=== PATIENT | female | born 1970 | race Caucasian/White ===

== ENCOUNTER 2016-11-15 19:42 | Emergency (ER) | payer OTHER ==
[~2016-11-15] VITALS: Ht 154.9 cm; Wt 98.9 kg
[~2016-11-15 19:42] MED LIST: ASPI-991; BENA1TAB18; CALC500T52; CARV25TA2; METF500T
--- NOTE | 2016-11-15 19:56 | NUR ---
pt ambulatory w/ steady gait for c/o low bp at home. per pt report, initially sbp was 110, but kept going down to 94 after 3 consecutive bp readings today, only medical complaint is feeling dizzy when bending down to pick something up, no other medical complaints. AOx4, afebrile w/ resp even & unlabored, denies any pain, no sob, no dizziness at this time, VSS w/ nad noted. pt in gown, on continuous monitoring.
[2016-11-15] MEDS ORDERED: IV SET PRIMARY 1 EA INFUS.SET MC ONE ×3 (20:13→21:13)
[2016-11-15] MEDS ORDERED: IV NS 0.9% 1,000 ML ONE ×3 (20:13→21:13)
--- NOTE | 2016-11-15 20:15 | NUR ---
IVHL started, labs drawn & sent. medicated as ordered w/ IV flds.
[2016-11-15] MEDS ORDERED: IV NS 0.9% 1,000 ML BAG IV ONE (20:30)
[2016-11-15 20:40] LABS: CALCIUM, SERUM 9.4 mg/dL (8.5-10.1); CREATININE 0.8 mg/dL (0.6-1.3); POTASSIUM 3.8 mmol/L (3.5-5.1)
[2016-11-15 20:50] LABS: BASOPHILS # (AUTO) 0.1 /CMM (0.0-0.2); BASOPHILS % (AUTO) 0.7 % (0.0-2.0); EOSINOPHILS # (AUTO) 0.2 /CMM (0.0-0.7); EOSINOPHILS % (AUTO) 2.6 % (0.0-6.0); HEMATOCRIT 40 % (33-45); HEMOGLOBIN 13.2 g/dL (11.5-14.8); LYMPHOCYTES # (AUTO) 4.3 /CMM (0.8-4.8); LYMPHOCYTES % (AUTO) 50.3 % (20.0-44.0); MEAN CORPUSCULAR HEMOGLOBIN 28 PG (26.0-33.0); MEAN CORPUSCULAR HGB CONC 33 g/dl (31.0-36.0); MEAN CORPUSCULAR VOLUME 85 fL (82-100); MONOCYTES # (AUTO) 0.5 /CMM (0.1-1.30); MONOCYTES % (AUTO) 5.7 % (2.0-12.0); NEUTROPHILS # (AUTO) 3.5 /CMM (1.8-8.9); NEUTROPHILS % (AUTO) 40.7 % (43.0-81.0); PLATELET COUNT (AUTO) 222 /CMM (150-450); RDW COEFFICIENT OF VARIATION 20.7 (11.5-15.0); RED BLOOD CELL COUNT(AUTO) 4.69 MIL/uL (4.0-5.2); WHITE BLOOD COUNT (AUTO) 8.6 K/uL (4.3-11.0)
--- NOTE | 2016-11-15 21:15 | NUR ---
IV removed. Catheter intact and site benign. Pressure and 4x4 applied to site. No bleeding noted.Patient discharged to home in stable condition. Written and verbal after care instructions given. Patient verbalizes understanding of instruction.
[2016-11-15 21:16] VITALS: BP 137/87
== END 2016-11-15 21:16 | disposition home or self-care (01) ==
LOC: ER 19:45
DX: E11.65 Type 2 diabetes mellitus with hyperglycemia (principal); E86.0 Dehydration; K21.9 Gastro-esophageal reflux disease without esophagitis; F41.9 Anxiety disorder, unspecified; F17.200 Nicotine dependence, unspecified, uncomplicated
CPT/HCPCS: 36415; 80048; 82962; 85025; 96360; 99284; A4606; J7030 ×3; Z7610

== ENCOUNTER 2019-04-04 19:50 | Emergency (ER) | payer OTHER ==
[~2019-04-04] VITALS: Ht 154.9 cm; Wt 100.2 kg
[~2019-04-04 19:50] MED LIST changes: +ASPI-1152; -ASPI-991
--- NOTE | 2019-04-04 20:20 | NUR ---
BIBS. C/O "HAVING HIGH BP AT HOME AND FEELING ANXIOUS FOR AROUND X3 DAYS" -SOB AOX4 .VSS. AMBULATORY
--- NOTE | 2019-04-04 20:22 | NUR ---
RADIOLOGY AT BEDSIDE.
[2019-04-04 20:41] LABS: BASOPHILS # (AUTO) 0.1 /CMM (0.0-0.2); BASOPHILS % (AUTO) 0.9 % (0.0-2.0); EOSINOPHILS % (AUTO) 3.3 % (0.0-6.0); HEMATOCRIT 45 % (33-45); LYMPHOCYTES % (AUTO) 37.5 % (20.0-44.0); MEAN CORPUSCULAR HGB CONC 34 g/dl (31.0-36.0); MEAN CORPUSCULAR VOLUME 91 fL (82-100); MONOCYTES # (AUTO) 0.4 /CMM (0.1-1.30); MONOCYTES % (AUTO) 5.3 % (2.0-12.0); NEUTROPHILS # (AUTO) 4.2 /CMM (1.8-8.9); PLATELET COUNT (AUTO) 224 /CMM (150-450)
--- NOTE | 2019-04-04 20:47 | NUR ---
PT RESTING IN BED COMFORTABLY. VSS AOX4. -DISTRESS NOTED.
[2019-04-04 21:01] LABS: CALCIUM, SERUM 9.7 mg/dL (8.5-10.1); CARBON DIOXIDE 29 mmol/L (21-32); CHLORIDE 100 mmol/L (98-107); CREATININE 0.8 mg/dL (0.6-1.3); GLUCOSE 287 mg/dL (74-106); POTASSIUM 3.3 mmol/L (3.5-5.1); SODIUM SERUM 137 mmol/L (136-145); UREA NITROGEN, BLOOD 16 mg/dL (7-18)
[2019-04-04 21:06] LABS: ALANINE AMINOTRANSFERASE 69 U/L (12-78); ALBUMIN 3.5 g/dL (3.4-5.0); ALKALINE PHOSPHATASE 61 U/L (46-116); ASPARTATE AMINOTRANSFERASE 26 U/L (15-37); BILIRUBIN,TOTAL 0.3 mg/dL (0.2-1.0); TOTAL PROTEIN, SERUM 7.2 g/dL (6.4-8.2)
[2019-04-04 21:45] VITALS: BP 121/83
== END 2019-04-04 21:45 | disposition home or self-care (01) ==
LOC: ER 19:52
DX: R42 Dizziness and giddiness (principal); R00.0 Tachycardia, unspecified; I10 Essential (primary) hypertension; E11.9 Type 2 diabetes mellitus without complications; K21.9 Gastro-esophageal reflux disease without esophagitis; F41.9 Anxiety disorder, unspecified; F10.10 Alcohol abuse, uncomplicated; Y90.9 Presence of alcohol in blood, level not specified; F17.200 Nicotine dependence, unspecified, uncomplicated; Z79.899 Other long term (current) drug therapy; Z79.82 Long term (current) use of aspirin
CPT/HCPCS: 36415; 71045-TC; 80048-TC; 80076-TC; 84484-TC; 85025-TC

== ENCOUNTER 2019-07-05 15:18 | Emergency (ER) | payer OTHER ==
[~2019-07-05] VITALS: Ht 162.6 cm; Wt 74.8 kg
--- NOTE | 2019-07-05 15:20 | NUR ---
PT REC'D TO ER C/O SWOLLEN EYES FROM HAIR DYE. MEDS GIVEN PER MD AWAITING EVALUATION BY ER PROVIDER. Addendum: 07/05/19 at 1612 by KATHIE PT STATED FEELING BETTER ASTER KOHLER LESS SWOLLEN AWAITING EVALUATION BY ER PROVIDER.
[2019-07-05] MEDS ORDERED: predniSONE 20 MG TABLET ONE (15:27)
[2019-07-05] MEDS ORDERED: FAMOTIDINE (20 MG) 20 MG TABLET ONE (15:28)
[2019-07-05] MEDS ORDERED: diphenhydrAMINE HCL 25 MG CAPSULE ONE (15:28)
--- NOTE | 2019-07-05 15:35 | NUR ---
AT BEDSIDE FOR EVAL.
[2019-07-05] MEDS ORDERED: diphenhydrAMINE HCL 50 MG CAPSULE PO ONE (16:00)
[2019-07-05] MEDS ORDERED: predniSONE 10 MG TABLET PO ONE (16:00)
[2019-07-05] MEDS ORDERED: FAMOTIDINE (20 MG) 20 MG TABLET PO ONE (16:00)
--- NOTE | 2019-07-05 16:15 | NUR ---
Patient discharged to home in stable condition. Written and verbal after care instructions given. Patient verbalizes understanding of instruction.
[2019-07-05 16:20] VITALS: BP 149/86
== END 2019-07-05 16:21 | disposition home or self-care (01) ==
LOC: ER 15:20
DX: L23.4 Allergic contact dermatitis due to dyes (principal); H05.223 Edema of bilateral orbit; E11.9 Type 2 diabetes mellitus without complications; I10 Essential (primary) hypertension; K21.9 Gastro-esophageal reflux disease without esophagitis; Z79.82 Long term (current) use of aspirin; Z79.899 Other long term (current) drug therapy
CPT/HCPCS: 99284; J7512; Q0163